=== PATIENT | male | born 1945 | race African-American/Black ===

== ENCOUNTER → 2020-08-22 | Outpatient (CLI) | payer MEDICARE ==
[~2020-08-22] MED LIST: AMLO-187 PO; BENZ200C47 PO; CRESTOR5 MG PO; GABA600T7 PO; GING250C PO; HYDR-2145 PO; METF500T16 PO; MULT-496 PO; NAPR-695 PO; OXYC5CAP PO; SERT100T PO; WARF-31 PO
[2020-08-22 09:54] LABS: ALBUMIN 3.6 g/dL (3.4-5.0); CALCIUM 9.4 mg/dL (8.5-10.1); CREATININE 0.8 mg/dL (0.7-1.3); POTASSIUM 3.7 mmol/L (3.5-5.1)
[2020-08-22 09:59] LABS: BASO % 1 % (0-3); EOS # 0.2 x10^3/uL (0.0-0.7); EOS % 5 % (0-3); HEMATOCRIT 43.3 % (39.0-53.0); HEMOGLOBIN 13.8 g/dL (13.0-17.5); LYMPH # 2.4 x10^3/uL (1.0-4.8); LYMPH % 52 % (24-48); MEAN CORPUSCULAR HEMOGLOBIN 24 pg (25-35); MEAN CORPUSCULAR HGB CONC 32 g/dL (31-37); MEAN CORPUSCULAR VOLUME 76 fL (79-100); MONO # 0.4 x10^3/uL (0.0-1.1); MONO % 9 % (0-9); NEUT # 1.6 x10^3/uL (1.8-7.7); NEUT % 34 % (31-73); PLATELET COUNT 236 x10^3/uL (140-400); RED CELL DISTRIBUTION WIDTH 15.7 % (11.5-14.5); WHITE BLOOD COUNT 4.7 x10^3/uL (4.0-11.0)
[2020-08-22 10:19] LABS: PROTHROMBIN TIME PATIENT 13.4 SEC (11.7-14.0)
--- NOTE | 2020-08-22 12:18 | EKG ---
[facility] [address] [place] [address] Test Date: 2020-08-22 Test Time: 12:12:09 Pat Name: VICENTE NUNO Department: Room: Gender: M [employer] Operator: : 1945 Requested By: SHAHID TRENT Order Number: [id number] Reading MD: Fili Michel MD Measurements Intervals [place] Rate: 73 P: 43 CT: 236 QRS: -37 QRSD: 86 T: 39 QT: 372 QTc: 413 Interpretive Statements SINUS RHYTHM PROLONGED CT INTERVAL ABNORMAL LEFT AXIS DEVIATION QRS(T) CONTOUR ABNORMALITY CONSISTENT WITH INFERIOR INFARCT PROBABLY OLD ABNORMAL ECG Electronically Signed On 08-22-2020 14:36:37 REPAIR ORDER CLERK by Fili Michel MD
[2020-08-23 00:09] LABS: HEMOGLOBIN A1C 7.3 % (4.8-5.6)
--- NOTE | 2020-08-23 17:30 | RAD ---
XR CHEST 2V History: Reason: hx hypertension-preop eval-joint class, LT KNEE ARTHROPLASTY ON 09/13/20 / Spl. Inst ructions: HX DIABETES, HTN / History: Comparison: None. Findings: Tortuous and borderline ectatic thoracic aorta. The cardiac size is normal. Pulmonary vasculature is normal. The lungs are clear. No pleural effusion or pneumothorax is seen. There is no acute bone abno rmality. IMPRESSION: No acute cardiopulmonary process. Electronically signed by: Fortino Chanel MD (08/23/2020 5:28 PM) [id number]
== END ==
LOC: SURGPAT 12:24
PROVIDERS: ATTEND Orthopaedic Surgery
DX: Z01.818 Encounter for other preprocedural examination (principal); M17.0 Bilateral primary osteoarthritis of knee; Z96.652 Presence of left artificial knee joint; Z88.0 Allergy status to penicillin
CPT/HCPCS: 36415; 71046; 80048; 82040; 82306; 83036; 85025; 85610; 85730; 87641; 93005

== ENCOUNTER → 2020-09-09 | Outpatient (CLI) | payer MEDICARE ==
[~2020-09-09] MED LIST changes: -OXYC5CAP PO; -WARF-31 PO
== END ==
LOC: LAB 09:53
PROVIDERS: ATTEND Orthopaedic Surgery
DX: Z01.812 Encounter for preprocedural laboratory examination (principal); Z20.822 Contact with and (suspected) exposure to COVID-19; M17.0 Bilateral primary osteoarthritis of knee
CPT/HCPCS: U0003